=== PATIENT | male | born 1965 | race Caucasian/White ===

== ENCOUNTER 2023-09-11 20:12 | Emergency (ER) | payer OTHER, SELFPAY ==
[2023-09-11 20:15] VITALS: BP 143/91
[2023-09-11 20:33] LABS: % Basophils 0.4 % (0-2); % Eosinophils 2.5 % (0-6); % Immature Granulocytes 1.5 % (0-0.5); % Monocytes 8.2 % (1.7-9.3); % Neutrophils 79.4 % (42.2-75.2); Absolute Basophils 0.1 10^3/uL (0-0.2); Absolute Eosinophils 0.3 10^3/uL (0-0.7); Absolute Immature Granulocytes 0.2 10^3/uL (0-0.05); Absolute Lymphocytes 1.1 10^3/uL (1.2-3.4); Absolute Monocytes 1.1 10^3/uL (0.1-0.6); Absolute Neutrophils 10.8 10^3/uL (1.4-6.5); Hematocrit 37.1 % (39.0-52.0); Hemoglobin 13.2 g/dL (13.0-18.0); Mean Corp Hgb Conc. 35.6 g/dL (33.0-37.0); Mean Corpuscular Hgb 29.3 pg (27.0-31.0); Mean Corpuscular Volume 82.4 fL (80.0-94.0); Nucleated Red Blood Cells % 0 % (-); Platelet Count 260 10^3/uL (130-400); Red Cell Dist. Width 12.6 % (11.5-14.5); White Blood Cell Count 13.6 10^3/uL (4.8-10.8)
[2023-09-11 20:41] LABS: COVID-19 Antigen Negative (Negative)
[2023-09-11 20:53] LABS: ALT (SGPT) 23 U/L (0-50); AST (SGOT) 18 U/L (17-59); Albumin 3.4 g/dl (3.5-5.0); Alkaline Phosphatase 108 U/L (38-126); Blood Urea Nitrogen 15 mg/dl (9-20); Calcium 8.5 mg/dl (8.4-10.2); Carbon Dioxide 22 mmol/L (22-30); Chloride 100 mmol/L (98-107); Glucose 131 mg/dl (70-99); Potassium 3.5 mmol/L (3.5-5.1); Sodium 134 mmol/L (135-145); Total Bilirubin 0.4 mg/dl (0.2-1.3); Total Protein 6.5 g/dl (6.3-8.2); eGFR > 60.00
[2023-09-11 21:16] VITALS: BMI 25.5
[2023-09-11 21:21] VITALS: BP 128/70
[2023-09-11] MEDS: OMNICEF 300 MG PO (22:32)
[2023-09-11] MEDS: ZITHROMAX 500 MG PO (22:32)
--- NOTE | 2023-09-11 22:35 | ED.GENMED ---
History of Present Illness
General
Chief Complaint: Cold/Flu/URI Symptoms
Source: patient and spouse
Exam Limitations: none
Time Seen by Provider: 09/11/23 21:02
Nursing documentation reviewed up to this point in time: agreed with
Travel History
Have you had any contact with someone who has COVID-19?: No
Do you have any symptoms of coronavirus? Fever > 100 degrees, chills, cough, shortness of breath, sore throat, loss of taste or smell, muscle aches, or headache?: No
History of Present Illness
History of Present Illness:
57-year-old male presenting to the emergency department today with concerns of ongoing fever after being diagnosed with the flu 1 week ago after being in [place]. He claims that his main symptom is cough. Sore throat and additional upper
respiratory symptoms seem to have been improving. No abdominal pain no vomiting.
Review of Systems
Review of Systems
Allergies reviewed?: Yes
All Other Systems: ROS reviewed and negative except as documented in HPI and ROS
Phy Exam
Physical Exam
Physical Exam:
GENERAL: Alert , in no apparent distress
EYE: pupils equal and reactive
NECK: Supple, no significant adenopathy.
ENT: o/p clr, mmm.
CARDIAC: Regular rate and rhythm .
LUNGS: Rhonchi right upper lobe otherwise clear breath sounds bilaterally, no acute respiratory distress, no wheezes/rales/rhonchi
ABDOMEN: Rhonchi to right upper lobe t soft, without focal tenderness, no r/g, no cvat
NEUROLOGICAL: Alert and oriented, no focal neuro deficits
SKIN: Warm and dry, skin intact.
MUSCULOSKELETAL: No edema, well perfused.
PSYCH: Normal and appropriate interaction.
Course
Orders/Labs/Results
Orders:
Orders
09/11/23 20:22
COVID-19 Antigen Urgent
Source: Nasal Swab
Complete Blood Count/With Diff Urgent
Comprehensive Metabolic Panel Urgent
Influenza A+B Rapid Molecular Urgent
SANTIAGO Source: Nasal Swab
Specimen Description:
09/11/23 21:03
Chest [CR Chest - 2 Views ] Urgent
Comment:
Reason For Exam: fever cough
09/11/23 22:15
Azithromycin [Zithromax] 500 mg PO NOW STA
Cefdinir [Omnicef] 300 mg PO NOW STA
Abnormal Lab Results
09/11/23
20:22
WBC 13.6 H 10^3/uL
(4.8-10.8)
RBC 4.50 L 10^6/uL
(4.70-6.10)
Hct 37.1 L %
(39.0-52.0)
Abs Immat Gran (auto) 0.2 H 10^3/uL
(0-0.05)
Absolute Neuts (auto) 10.8 H 10^3/uL
(1.4-6.5)
Absolute Lymphs (auto) 1.1 L 10^3/uL
(1.2-3.4)
Absolute Monos (auto) 1.1 H 10^3/uL
(0.1-0.6)
Immature Gran % 1.5 H %
(0-0.5)
Neutrophils % 79.4 H %
(42.2-75.2)
Lymphocytes % 8.0 L %
(20.5-51.1)
Sodium 134 L mmol/L
(135-145)
Glucose 131 H mg/dl
(70-99)
Albumin 3.4 L g/dl
(3.5-5.0)
09/11/23 20:22
09/11/23 20:22
Vital Signs
Initial and Last Documented VS:
Initial Vital Signs
Temp Pulse Resp BP Pulse Ox
98.1 F 82 16 143/91 99
09/11/23 20:15 09/11/23 20:15 09/11/23 20:15 09/11/23 20:15 09/11/23 20:15
Last Documented Vital Signs
Temp Pulse Resp BP Pulse Ox
98.1 F 76 16 128/70 95
09/11/23 20:15 09/11/23 21:21 09/11/23 21:21 09/11/23 21:21 09/11/23 21:16
MDM/Problems Addressed
MDM/Problems Addressed:
57-year-old male presenting to the emergency department today with concerns of intermittent fevers 1 week after being diagnosed with the flu. Main symptom ongoing is cough denies chest pain or shortness of breath on arrival vital signs are normal
patient well-appearing no obvious distress does have adventitious sounds to the right upper lobe of the lungs chest x-ray confirming pneumonia on my independent interpretation. Plan for treatment for community-acquired pneumonia otherwise stable
for discharge return precautions given.
*Critical Care Note
Total Time (30-74mins, 75-104mins- exclusive of procedures): Not Applicable
ED Attending Note
-
Portions of this chart may have been created with voice recognition software.� Occasional wrong word or��sound alike� substitutions may have occurred due to the inherent limitations of voice recognition software.
Discharge Plan
Departure
Patient Disposition: Home (Routine Discharge)
Date of Disposition: 09/11/23
Time of Disposition: 22:37
Patient with high blood pressure during this ER visit?: No
Condition: Good
Covid-19: Not Applicable
Discharge Problem:
Pneumonia
Instructions: Pneumonia
Prescriptions:
New
cefpodoxime 100 mg tablet
200 mg PO BID 7 Days Qty: 28 0RF
azithromycin 500 mg tablet
500 mg PO DAILY 2 Days Qty: 2 0RF
Referrals:
Dedrick Silvestre MD [Family Provider] -
Activity Restrictions/Additional Instructions:
You came to the emergency department today with concerns of ongoing fever. You are found to have a pneumonia. Please take the prescribed antibiotics. Return to the emergency department for any worsening, new or concerning symptoms.
Interventions
Interventions:
*Risk Screen - Suicide Last Done: 09/11/23 20:15
*General Assessment Last Done: 09/11/23 20:15
*Neglect/Abuse Screening Last Done: 09/11/23 20:15
ED- Fall Risk Assessment Last Done: 09/11/23 21:16
*ED COVID-19 Vaccine History Last Done: 09/11/23 20:15
ED- Pulmonary Assessment Last Done: 09/11/23 21:16
== END 2023-09-11 23:30 | disposition home or self-care (01) ==
LOC: EMR 20:12
PROVIDERS: Emergency Medicine; EMERGENCY PHYSICIAN Emergency Medicine; FAMILY PHYSICIAN Family Medicine
DX: J18.9 Pneumonia, unspecified organism (principal); Z11.52 Encounter for screening for COVID-19
CPT/HCPCS: 99284; 71046; 80053; 85025; 87502; 87811

== ENCOUNTER 2023-09-14 05:34 | Inpatient (IN) | payer OTHER, SELFPAY ==
[2023-09-13 21:50] VITALS: BP 147/103
[2023-09-13 22:21] LABS: % Basophils 0.6 % (0-2); % Eosinophils 1.8 % (0-6); % Immature Granulocytes 6.1 % (0-0.5); % Lymphocytes 11.6 % (20.5-51.1); % Monocytes 8.8 % (1.7-9.3); % Neutrophils 71.1 % (42.2-75.2); Absolute Basophils 0.1 10^3/uL (0-0.2); Absolute Eosinophils 0.3 10^3/uL (0-0.7); Absolute Lymphocytes 1.9 10^3/uL (1.2-3.4); Absolute Monocytes 1.4 10^3/uL (0.1-0.6); Absolute Neutrophils 11.4 10^3/uL (1.4-6.5); Hematocrit 37.9 % (39.0-52.0); Hemoglobin 13.1 g/dL (13.0-18.0); Mean Corp Hgb Conc. 34.6 g/dL (33.0-37.0); Mean Platelet Volume 8.7 fL (7.4-10.4); Nucleated Red Blood Cells % 0 % (-); Platelet Count 305 10^3/uL (130-400); Red Blood Cell Count 4.51 10^6/uL (4.70-6.10); Red Cell Dist. Width 12.8 % (11.5-14.5)
[2023-09-13 22:29] LABS: ALT (SGPT) 36 U/L (0-50); AST (SGOT) 26 U/L (17-59); Albumin 3.5 g/dl (3.5-5.0); Alkaline Phosphatase 121 U/L (38-126); Blood Urea Nitrogen 14 mg/dl (9-20); Calcium 8.3 mg/dl (8.4-10.2); Carbon Dioxide 26 mmol/L (22-30); Chloride 100 mmol/L (98-107); Glucose 125 mg/dl (70-99); Potassium 3.6 mmol/L (3.5-5.1); Sodium 133 mmol/L (135-145); Total Bilirubin 0.5 mg/dl (0.2-1.3); Total Protein 6.5 g/dl (6.3-8.2); eGFR > 60.00
[2023-09-13 22:41] LABS: Urine Albumin 1+ (Neg - Trace); Urine Bilirubin 1+ (Negative); Urine Character Clear (Clear); Urine Color Yellow; Urine Glucose Negative (Negative); Urine Ketone Negative (Negative); Urine Leukocyte Negative (Negative); Urine Nitrite Negative (Negative); Urine Occult Blood 4+ (Negative); Urine Specific Gravity 1.015 (<1.030); Urine Urobilinogen Negative (Neg - 1+)
[2023-09-13 22:54] LABS: Urine Mucus Few
[2023-09-13 22:55] LABS: Urine Bacteria Few (Negative); Urine Red Blood Cell 26-30 /HPF (0-2); Urine Squamous Cell 0-2 /LPF (Few); Urine White Cell 0-2 /HPF (0-5)
[2023-09-14] VITALS (9 sets, daily range): BP systolic 118–155; BP diastolic 63–85; BMI 25.6; BMI 26.5
--- NOTE | 2023-09-14 00:30 | ED.GENMED ---
History of Present Illness
<Chase Phillips PA-C - Last Filed: 09/16/23 07:14>
General
Chief Complaint: Male Genito-Urinary Symptoms
Source: patient
Exam Limitations: none
Time Seen by Provider: 09/14/23 00:14
Travel History
Have you had any contact with someone who has COVID-19?: No
Do you have any symptoms of coronavirus? Fever > 100 degrees, chills, cough, shortness of breath, sore throat, loss of taste or smell, muscle aches, or headache?: No
History of Present Illness
History of Present Illness:
57-year-old male presents with onset of right flank pain that radiates to the right testicle. He was seen here 3 days ago and diagnosed with right upper lobe pneumonia. He has been on cefpodoxime as well as Zithromax. He denies any urinary
symptoms. He has a remote history of a kidney stone. Prior to getting pneumonia he had the flu from visiting [facility]. No bowel change. No other complaints at this time
Phy Exam
<Chase Phillips PA-C - Last Filed: 09/16/23 07:14>
Physical Exam
Physical Exam:
General: Well-appearing male no acute respiratory distress
HEENT: Normocephalic atraumatic
Heart: Regular rate rhythms
Lungs: CTA bilaterally
Abd: soft, mildly tender to right flank, nontender to RLQ. Negative enciso's sign
Ext: No cyanosis or edema
Skin; warm, no rashes or lesions.
Course
<Chase Phillips PA-C - Last Filed: 09/16/23 07:14>
Orders/Labs/Results
Orders:
Orders
09/13/23 21:59
Complete Blood Count/With Diff Urgent
Comprehensive Metabolic Panel Urgent
09/13/23 22:23
Urinalysis Reflex To Culture Urgent
Date Specimen was Collected: 09/13/23
Time Specimen was Collected: 21:54
Urine Microscopic Reflex Cult Urgent
Urine Culture Urgent
SANTIAGO Source: U
Specimen Description:
Date Specimen was Collected: 09/13/23
Time Specimen was Collected: 21:54
Comment: ADD ON
09/14/23 00:24
Ketorolac [Toradol] 15 mg IV NOW STA
09/14/23 00:25
CT Abd/pel Without Iv Or Oral Urgent
Comment:
Reason For Exam: right flank pain
09/14/23 01:58
HYDROmorphone [Dilaudid] 0.5 mg IV NOW STA
09/14/23 04:03
Aztreonam [Azactam] 2,000 mg IV NOW STA
09/14/23 04:09
Sterile Water [Sterile Water For Injection] 10 ml .ROUTE .STK-MED ONE
09/14/23 04:30
Vancomycin [Vancocin] 2,000 mg 0.9% Sodium Chloride 500 ml [Nss] 500 ml IV ONCE
09/14/23 04:40
Admit/Transfer Patient As Directed
Co-Sign Provider:
Level of Care: Inpatient admission
Assign to:: Medical/Surgical
Physician / Group: htay
Diagnosis: Mild Rt HN, 3 mm kidney stone notch of distal Rt Ureter
Reason for Hospitalization: Obstructive uropathy mild Rt HN 2/2 3 mm kidney stone notch of distal Rt Ureter
Possibel infected stone : Acute Rt flank painLow grade fever with leucoytosis
Expected length of stay greater than two midnights?: Yes
ELOS- Estimated Length of Stay in days: 2
I certify the patient meets the requirements for IP care: Yes
09/14/23 04:42
Code Status As Directed
Resuscitation Status: Full Code
09/14/23 Breakfast
NPO
Allow oral meds: Yes
Allow clear liquids: No
NPO with Ice Chips: Yes
09/14/23 06:15
0.9% Sodium Chloride 1000 ml [Nss] 1,000 ml IV 100 mls/hr
Acetaminophen [Tylenol] 650 mg PO Q4HPRN PRN
Ketorolac [Toradol] 10 mg IV Q6HPRN PRN
09/14/23 06:15
UROLOGY CONSULT Routine
Consulting Provider: Harsh Rinaldi
Was physician already notified: Yes
Comment: Obstructive uropathy mild Rt HN 2/2 3 mm kidney stone notch of distal Rt Ur
Activity As Directed
Activity Level: With Assistance
Intake/ Output As Directed
Frequency: Per unit guidelines
Pneumatic Compression Sleeves As Directed
Type: Knee high
Vital Signs As Directed
Frequency: Per unit guidelines
DX Deep Vein Thrombosis Video Routine
09/14/23 10:00
LevoFLOXacin 500 MG/100 ML [Levaquin] 500 mg in 100 ml IV Q24H
09/15/23 08:38
Basic Metabolic Panel IN AM
Complete Blood Count/No Diff IN AM
Abnormal Lab Results
09/13/23 09/13/23
21:59 22:23
WBC 16.0 H 10^3/uL
(4.8-10.8)
RBC 4.51 L 10^6/uL
(4.70-6.10)
Hct 37.9 L %
(39.0-52.0)
Abs Immat Gran (auto) 1.0 H 10^3/uL
(0-0.05)
Absolute Neuts (auto) 11.4 H 10^3/uL
(1.4-6.5)
Absolute Monos (auto) 1.4 H 10^3/uL
(0.1-0.6)
Immature Gran % 6.1 H %
(0-0.5)
Lymphocytes % 11.6 L %
(20.5-51.1)
Sodium 133 L mmol/L
(135-145)
Glucose 125 H mg/dl
(70-99)
Calcium 8.3 L mg/dl
(8.4-10.2)
Ur Occult Blood Reflex 4+ A
(Negative)
Urine Bilirubin 1+ A
(Negative)
Urine RBC 26-30 A /HPF
(0-2)
Urine Bacteria (Reflex) Few A
(Negative)
Urine Albumin (Reflex) 1+ A
(Neg - Trace)
09/13/23 21:59
09/13/23 21:59
Vital Signs
Initial and Last Documented VS:
Initial Vital Signs
Temp Pulse Resp BP Pulse Ox
100 F 96 18 147/103 95
09/13/23 21:50 09/13/23 21:50 09/13/23 21:50 09/13/23 21:50 09/13/23 21:50
Last Documented Vital Signs
Temp Pulse Resp BP Pulse Ox
99.4 F 83 16 149/84 96
09/15/23 23:30 09/15/23 23:30 09/15/23 23:30 09/15/23 23:30 09/15/23 23:30
<Cam Beltran, DO - Last Filed: 09/14/23 04:06>
Orders/Labs/Results
Orders:
Orders
09/13/23 21:59
Complete Blood Count/With Diff Urgent
Comprehensive Metabolic Panel Urgent
09/13/23 22:23
Urinalysis Reflex To Culture Urgent
Date Specimen was Collected: 09/13/23
Time Specimen was Collected: 21:54
Urine Microscopic Reflex Cult Urgent
Urine Culture Urgent
SANTIAGO Source: U
Specimen Description:
Date Specimen was Collected: 09/13/23
Time Specimen was Collected: 21:54
Comment: ADD ON
09/14/23 00:24
Ketorolac [Toradol] 15 mg IV NOW STA
09/14/23 00:25
CT Abd/pel Without Iv Or Oral Urgent
Comment:
Reason For Exam: right flank pain
09/14/23 01:58
HYDROmorphone [Dilaudid] 0.5 mg IV NOW STA
09/14/23 04:03
Aztreonam [Azactam] 2,000 mg IV NOW STA
09/14/23 04:09
Sterile Water [Sterile Water For Injection] 10 ml .ROUTE .STK-MED ONE
09/14/23 04:30
Vancomycin [Vancocin] 2,000 mg 0.9% Sodium Chloride 500 ml [Nss] 500 ml IV ONCE
09/14/23 04:40
Admit/Transfer Patient As Directed
Co-Sign Provider:
Level of Care: Inpatient admission
Assign to:: Medical/Surgical
Physician / Group: htay
Diagnosis: Mild Rt HN, 3 mm kidney stone notch of distal Rt Ureter
Reason for Hospitalization: Obstructive uropathy mild Rt HN 2/2 3 mm kidney stone notch of distal Rt Ureter
Possibel infected stone : Acute Rt flank painLow grade fever with leucoytosis
Expected length of stay greater than two midnights?: Yes
ELOS- Estimated Length of Stay in days: 2
I certify the patient meets the requirements for IP care: Yes
09/14/23 04:42
Code Status As Directed
Resuscitation Status: Full Code
09/14/23 Breakfast
NPO
Allow oral meds: Yes
Allow clear liquids: No
NPO with Ice Chips: Yes
09/14/23 06:15
0.9% Sodium Chloride 1000 ml [Nss] 1,000 ml IV 100 mls/hr
Acetaminophen [Tylenol] 650 mg PO Q4HPRN PRN
Ketorolac [Toradol] 10 mg IV Q6HPRN PRN
09/14/23 06:15
UROLOGY CONSULT Routine
Consulting Provider: Harsh Rinaldi
Was physician already notified: Yes
Comment: Obstructive uropathy mild Rt HN 2/2 3 mm kidney stone notch of distal Rt Ur
Activity As Directed
Activity Level: With Assistance
Intake/ Output As Directed
Frequency: Per unit guidelines
Pneumatic Compression Sleeves As Directed
Type: Knee high
Vital Signs As Directed
Frequency: Per unit guidelines
DX Deep Vein Thrombosis Video Routine
09/14/23 10:00
LevoFLOXacin 500 MG/100 ML [Levaquin] 500 mg in 100 ml IV Q24H
09/15/23 08:38
Basic Metabolic Panel IN AM
Complete Blood Count/No Diff IN AM
Abnormal Lab Results
09/13/23 09/13/23
21:59 22:23
WBC 16.0 H 10^3/uL
(4.8-10.8)
RBC 4.51 L 10^6/uL
(4.70-6.10)
Hct 37.9 L %
(39.0-52.0)
Abs Immat Gran (auto) 1.0 H 10^3/uL
(0-0.05)
Absolute Neuts (auto) 11.4 H 10^3/uL
(1.4-6.5)
Absolute Monos (auto) 1.4 H 10^3/uL
(0.1-0.6)
Immature Gran % 6.1 H %
(0-0.5)
Lymphocytes % 11.6 L %
(20.5-51.1)
Sodium 133 L mmol/L
(135-145)
Glucose 125 H mg/dl
(70-99)
Calcium 8.3 L mg/dl
(8.4-10.2)
Ur Occult Blood Reflex 4+ A
(Negative)
Urine Bilirubin 1+ A
(Negative)
Urine RBC 26-30 A /HPF
(0-2)
Urine Bacteria (Reflex) Few A
(Negative)
Urine Albumin (Reflex) 1+ A
(Neg - Trace)
09/13/23 21:59
09/13/23 21:59
Vital Signs
Initial and Last Documented VS:
Initial Vital Signs
Temp Pulse Resp BP Pulse Ox
100 F 96 18 147/103 95
09/13/23 21:50 09/13/23 21:50 09/13/23 21:50 09/13/23 21:50 09/13/23 21:50
Last Documented Vital Signs
Temp Pulse Resp BP Pulse Ox
99.4 F 83 16 149/84 96
09/15/23 23:30 09/15/23 23:30 09/15/23 23:30 09/15/23 23:30 09/15/23 23:30
<Chase Phillips PA-C - Last Filed: 09/16/23 07:14>
MDM/Problems Addressed
Differential Diagnosis Includes:
Right flank pain. Question possible renal colic versus kidney stone versus pyelonephritis. He was started on an antibiotic recently for pneumonia. White blood cell count 16,000. Urinalysis with hematuria but no infection. CT pending
<Chase Phillips PA-C - Last Filed: 09/16/23 07:14>
*Critical Care Note
Total Time (30-74mins, 75-104mins- exclusive of procedures): Not Applicable
<Cam Beltran DO - Last Filed: 09/14/23 04:06>
Update Note
Update Note:
CT abdomen and pelvis without intravenous contrast
IMPRESSION:
Mild right hydroureteronephrosis secondary to a 3 mm stone notch of the distal right ureter, compatible with obstructive uropathy. Correlate with urinalysis to assess for superimposed infection.
Small right pleural effusion. No bowel obstruction. No inguinal hernia. No cholecystitis or pancreatitis.
ED Attending Note
<Chase Phillips PA-C - Last Filed: 09/16/23 07:14>
-
Portions of this chart may have been created with voice recognition software.� Occasional wrong word or��sound alike� substitutions may have occurred due to the inherent limitations of voice recognition software.
<Cam Beltran DO - Last Filed: 09/14/23 04:06>
ED Attending Note
Patient seen and examined by attending physician: Yes
I performed the substantive portion of visit, reviewed & personally made and approve the management plan that is documented in note by myself or SOFÍA.: Yes
ED Attending Note:
57-year-old male with fevers for a week. In addition he was diagnosed with influenza and pneumonia. He was started on 2 antibiotics. Patient still having fevers as of today. He has been having right-sided testicular and flank pain for the last
week. He states that the flank pain began with the beginning of the fevers. Patient is still not feeling much better. At this time patient will be brought into the hospital for IV antibiotics.
Discharge Plan
Departure
Patient Disposition: Admit
Date of Disposition: 09/14/23
Time of Disposition: 04:04
Admit to: Telemetry
Presentation/result/management discussed w/ accepting MD/DO: Hospitalist
Condition: Good
Discharge Problem:
Kidney stone on right side, Fever
Interventions
Interventions:
*Risk Screen - Suicide Last Done: 09/13/23 21:50
*General Assessment Last Done: 09/13/23 21:50
*Neglect/Abuse Screening Last Done: 09/13/23 21:50
ED- Fall Risk Assessment Last Done: 09/14/23 06:23
*ED COVID-19 Vaccine History Last Done: 09/14/23 00:13
*Nursing Disposition Last Done: 09/14/23 13:51
ED-Male Genitourinary Assessment Last Done: 09/14/23 00:43
Discharge Date and Time
Discharge Date/Time: 09/14/23 13:52
[2023-09-14] MEDS: TORADOL 15 MG IV (00:39)
--- NOTE | 2023-09-14 00:46 | EDRN ---
Pt has had R groin pain x 8 days that worsened today and is going into R flank. Pt denies urinary symptoms, n/v, fever/chills, cp, sob. Pt being treated for pneumonia after having the flu.
[2023-09-14] MEDS: DILAUDID 0.5 MG IV (02:00)
[2023-09-14] MEDS: AZACTAM 2000 MG IV (04:14)
--- NOTE | 2023-09-14 04:14 | EDRN ---
Called pharmacy for vancomycin
[2023-09-14] MEDS: VANCOCIN 540 MG IV (04:33)
--- NOTE | 2023-09-14 04:36 | HPS.HSE ---
Family Physician
-
Family Physician: Dedrick Silvestre
Chief Complaint
-
acute Rt flank pain
History of Present Illness
57M remote HX kidney stone, currently on Cefpodoxime and Z max for recently Dxed Rt UL PNA 3 days ago pw worsening intermittent acute Rt flank pain with intermittent radiation to R testis since 1st week of August while he was in [place] for
business trip. Since then, reportedly intermittent fever for last 2.5 weeks. Yesterday T was as high as 102.
Acute severe flank pain prompted to visit ER this AM
Denied N/V/D
Denied Gross hematuria, dysuria, frequency.
Medical History
Past Medical History
Past Medical History: Reports Other (HX kidney stone )
Past Surgical History: Reports None
Social History
Tobacco: Non-smoker
Alcohol: None
Family History
Family History: Not pertinent
Allergies / Home Medications
Allergies reflects when Allergies were last updated in [facility].
Home Medications with original date entered in [facility]
Allergy/Medication List:
Allergies
Allergy/AdvReac Type Severity Reaction Status Date / Time
Penicillins Allergy Unknown Unknown Verified 09/14/23 00:35
Home Medications
cefpodoxime 100 mg tablet 200 mg PO BID 7 days #28 tabs 09/11/23
Review of Systems
-
Constitutional: Reports Fever
EENT: Reports No Symptoms
Respiratory: Reports No Symptoms
Cardiac: Reports No Symptoms
Abdomen/GI: Reports No Symptoms
: Reports See HPI and Flank Pain (Rt sided ); Denies Dysuria or Frequency
Musculoskeletal: Reports No Symptoms
Skin: Reports No Symptoms
Neurological: Reports No Symptoms
Endocrine: Reports No Symptoms
Hematologic/Lymphatic: Reports No Symptoms
Psych: Reports No Symptoms
Physical Exam
Vital Signs
Vital Signs
Temp Pulse Resp BP Pulse Ox
99.3 F 78 14 118/70 98
09/14/23 04:23 09/14/23 04:23 09/14/23 04:23 09/14/23 04:23 09/14/23 00:34
Physical Exam
General: Well Nourished and Comfortable
HEENT: NormoCephalic, Anicteric and Moist mucous membranes
Respiratory: Clear; No Wheezes, Rales or Rhonchi
Cardiac: S1/S2 and Regular Rhythm; No Tachycardia
GI: Soft, Non Tender, Non Distended and Normal Bowel Sounds
Rectal: Deferred by Provider
Genito-urinary: Other (Rt flank pain ); No No costovertebral tender
Skin: Warm
Neuro: AO x 3
Psych: Calm
Laboratory Results
-
09/13/23 21:59
09/13/23 21:59
Laboratory Results
Total Bilirubin 0.5 mg/dl (0.2-1.3) 09/13/23 21:59
AST 26 U/L (17-59) 09/13/23 21:59
ALT 36 U/L (0-50) 09/13/23 21:59
Alkaline Phosphatase 121 U/L (38-126) 09/13/23 21:59
Data Reviewed
-
CT Scan: Report Reviewed by me
Lab Data: Labs Reviewed by me
Impression/Plan
-
Reviewed VS: T 100 HR 80s BP 127/73
Data
WCC 16
Na 133
nl Cr nl GFR
BG 125
UA - RBCs 26-30
CT AP wo IV contrast
- mild Rt HN 2/2 3 mm kidney stone notch of distal Rt Ureter
- small Rt pleural effusion
ASSESSMENT & PLAN
Possible infected distal Rt Ureter stone : Acute Rt flank pain Low grade fever with leucocytosis
Associated with obstructive uropathy mild Rt HN due to 3 mm kidney stone notch of distal Rt Ureter
HX PCN allergy
- switch to IV LVQ
- IVF
- IV Toradol PRN
- NPO
- Uro consulted
Recent OP Dx of RUL PNA
- IV LVQ in place of PO Cefpodoxime and Z max
DVT Px: SCD
Code: Full
IP MS
[2023-09-14] MEDS: NSS 1000 IV ×2 (06:37→14:30)
--- NOTE | 2023-09-14 09:02 | W.PN.URO.CBU ---
Today's Communication / Plan
-
Admit to Hospitalist service for observation
Will allow a trial of stone passage under close watch
Unfortunately, a urine culture does not appear to have been sent before beginning IV levofloxacin
Will proceed to OR for stone manipulation 09/16/23 if stone does not pass
Assessment / Plan
-
Partially obstructing 3 mm right UVJ stone
Minimal discomfort
Urinalysis not c/w UTI
---
Patient has been on antibiotic 48 hours for RUL PNA
He has had respiratory symptoms for 2 weeks: fever, cough, SOB
Fevers and leukocytosis most likely due to PNA
Diagnosis
-
Date of Service: September 14, 2023
-
Patient Diagnosis:
Partially obstructing 3 mm right UVJ stone: CT scan images personally reviewed
Urinalysis w/o evidence of acute infection
Currently comfortable; has had vague RLQ discomfort
---
Past urologic history notable for nephrolithiasis
Patient has never required stone surgery
Has passed stones spontaneously: has had no issues in many years
---
He has right upper lobe PNA: 09/11/23 CXR reviewed
He has had intermittent fever > 100 x 2 weeks
He currently has a non-productive cough
Subjective
-
No renal colic
No voiding dysfunction
No gross hematuria
No nausea
Objective
-
Vital Signs
Temp Pulse Resp BP Pulse Ox
99.3 F 78 14 118/70 98
09/14/23 04:23 09/14/23 04:23 09/14/23 04:23 09/14/23 04:23 09/14/23 00:34
Laboratory Results
09/13/23 21:59
09/13/23 21:59
Review of Systems
-
Constitutional: Fever and Fatigue
Respiratory: Cough
Cardiac: No Symptoms
Abdomen/GI: No Symptoms
: No Symptoms
Neurological: No Symptoms
Physical Exam
-
General - well developed, well nourished, no acute distress
Abdomen - soft, non-tender, no CVAT
Genitalia - normal
Skin - warm & dry with no rash
Neuro - AOx3, no motor deficits
[2023-09-14] MEDS: TYLENOL 650 MG PO ×3 (09:24→22:30)
[2023-09-14] MEDS: FLOMAX 0.400000000000000022 MG PO (10:45)
[2023-09-14] MEDS: ROCEPHIN 1000 MG IV (10:46)
[2023-09-14] MEDS: STERILE WATER FOR INJECTION 10 ML IV (10:47)
--- NOTE | 2023-09-14 14:30 | PTCARENOTE ---
09/13- Patient transferred and oriented to unit without issue. AAOX3; Skin CDI/Warm/[place]/Dry; Denies any pain at this time. Denies any other needs. Fully independent in room.
--- NOTE | 2023-09-14 15:00 | W.PN.UPDATE ---
Update Note
Progress Note Update
This note serves as supplemental to history and physical already documented today
� Switch Levaquin to ceftriaxone
� Continue IV fluids, monitor sodium levels
� Urology on board, will allow trial of stone passage
� Add on urine cultures if possible, will start antibiotics prior to ensuring that urine culture was sent
� Proceed to the OR for stone manipulation on 09/15 if stone does not pass
� Pain control
� Added HSQ for DVT prophylaxis
�Was started on antibiotics for pneumonia, cefpodoxime�now�switch to ceftriaxone, can hold
[2023-09-14] MEDS: HEPARIN 5000 UNITS SC (19:47)
[2023-09-15] MEDS: NSS 1000 IV (00:25)
[2023-09-15 07:30] VITALS: BP 127/74
[2023-09-15] MEDS: HEPARIN 5000 UNITS SC (08:00)
[2023-09-15] MEDS: FLOMAX 0.400000000000000022 MG PO (08:00)
--- NOTE | 2023-09-15 08:29 | W.PN.URO.CBU ---
Today's Communication / Plan
-
Has possibly passed stone into urinary bladder
Cleared for discharge for outpatient trial of stone passage if remains pain-free today
Assessment / Plan
-
Partially obstructing 3 mm right UVJ stone
No discomfort
Urinalysis not c/w UTI
---
Patient has been on antibiotic 48 hours for RUL PNA
He has had respiratory symptoms for 2 weeks: fever, cough, SOB
Fevers and leukocytosis most likely due to PNA
Diagnosis
-
Date of Service: September 15, 2023
-
Patient Diagnosis:
Partially obstructing 3 mm right UVJ stone: CT scan images personally reviewed
Urinalysis w/o evidence of acute infection
Currently comfortable: has had no recurrent renal colic
---
Past urologic history notable for nephrolithiasis
Patient has never required stone surgery
Has passed stones spontaneously: has had no issues in many years
---
He has right upper lobe PNA: 09/11/23 CXR reviewed
He has had intermittent fever > 100 x 2 weeks
He currently has a non-productive cough
Subjective
-
No flank or abdominal pain
Objective
-
Vital Signs
Temp Pulse Resp BP Pulse Ox
98.2 F 77 18 127/74 94
09/15/23 07:30 09/15/23 07:30 09/15/23 07:30 09/15/23 07:30 09/15/23 07:30
Intake and Output
09/14/23 09/15/23 09/16/23
06:59 06:59 06:59
Intake Total 2880 / 2880
Output Total 1750 / 1750
Balance 1130 / 1130
Intake:
Oral fluids 1680 / 1680
IV fluids (Total) 1200 / 1200
Output:
Urine, Voided 1750 / 1750
Review of Systems
-
Constitutional: No Symptoms
Respiratory: Cough
Cardiac: No Symptoms
Abdomen/GI: No Symptoms
: No Symptoms
Neurological: No Symptoms
Physical Exam
-
General - well developed, well nourished, no acute distress
Abdomen - soft, non-tender
Genitalia - normal
Skin - warm & dry with no rash
Neuro - AOx3, no motor deficits
[2023-09-15 09:01] LABS: Hematocrit 34.5 % (39.0-52.0); Hemoglobin 11.7 g/dL (13.0-18.0); Mean Corp Hgb Conc. 33.9 g/dL (33.0-37.0); Mean Corpuscular Hgb 28.8 pg (27.0-31.0); Mean Platelet Volume 8.6 fL (7.4-10.4); Platelet Count 297 10^3/uL (130-400); Red Blood Cell Count 4.06 10^6/uL (4.70-6.10); Red Cell Dist. Width 12.4 % (11.5-14.5); White Blood Cell Count 11.9 10^3/uL (4.8-10.8)
[2023-09-15] MEDS: STERILE WATER FOR INJECTION 10 ML IV (09:28)
[2023-09-15] MEDS: ROCEPHIN 1000 MG IV (09:28)
--- NOTE | 2023-09-15 10:52 | CM ---
admitting manager reviewed patient's chart and met with patient and patient lives with significant other in a multilevel home, patient is independent with adl's and ambulation, no dme, patient drives, patient has a prescription plan and uses [facility] pharmacy.
PCP: Dr. Silvestre
Plan; Home when stable, no needs.
[2023-09-15 10:53] LABS: Blood Urea Nitrogen 11 mg/dl (9-20); Calcium 7.9 mg/dl (8.4-10.2); Carbon Dioxide 27 mmol/L (22-30); Chloride 100 mmol/L (98-107); Estimated Creatinine Clearance 91 ml/min; Glucose 103 mg/dl (70-99); Magnesium 1.8 mg/dl (1.6-2.3); Potassium 3.7 mmol/L (3.5-5.1); Sodium 135 mmol/L (135-145); eGFR > 60.00
[2023-09-15] MEDS: VIBRAMYCIN 100 MG PO ×2 (11:02→19:42)
[2023-09-15] MEDS: DUONEB 3 ML INH (12:46)
--- NOTE | 2023-09-15 14:47 | W.PN.HOSP.TC ---
Today's Communication/Plan
-
add doxycycline
start prn DuoNeb therapy
Assessment / Plan
Assessment / Plan
1. Right distal ureteral stone
-CT abd/pelv showing small 3mm distal urerteal stone
-Passed with conservative mangment/IVF
-Urology cleared for discahrge
2. RUL Pna
- diagnosed last week
- continue to have shortness breath/wheezing
- wheezing on exam, non smoker. duoneb prn ordered
- COVID/flu neg. check legionella/strep pneumonia
- added doxycycline to regimen. already on rocephin
DVT Px: SCD
Code: Full
Anticipated Discharge: Within 24 hours
Subjective/Interval History
-
Date of Service: September 15, 2023
Continues to have cough and shortness of breath
febrile last evening
Objective Data
-
Labs:
Laboratory Results
09/15/23
08:38
WBC 11.9 H
Hgb 11.7 L
Hct 34.5 L
Plt Count 297
Sodium 135
Potassium 3.7
Chloride 100
Carbon Dioxide 27
BUN 11
Creatinine 0.9
Glucose 103 H
Calcium 7.9 L
Vital Signs:
Vital Signs
Temp Pulse Resp BP Pulse Ox
98.2 F 75 14 127/74 96
09/15/23 07:30 09/15/23 12:50 09/15/23 12:50 09/15/23 07:30 09/15/23 12:50
I&O
09/14/23 09/15/23 09/16/23
06:59 06:59 06:59
Intake Total 2880 / 2880
Output Total 1750 / 1750
Balance 1130 / 1130
Review of Systems
-
Respiratory: Reports Cough and Trouble Breathing
Cardiac: Reports No Symptoms
Abdomen/GI: Reports No Symptoms
Physical Exam
-
General: Comfortable
HEENT: Negative Oxygen
Respiratory: Clear to Auscultation
Cardiac: Regular Rhythm and S1/S2; Negative Murmur or Rub
GI: Soft, Nontender and Nondistended
Musculoskeletal: No Edema
Neuro: Awake, Alert, Oriented, No Motor Deficits and Nonfocal/Grossly Intact
Psych: Calm
[2023-09-15 15:00] VITALS: BP 122/65
[2023-09-15] MEDS: TYLENOL 650 MG PO ×2 (15:28→22:51)
[2023-09-15] MEDS: ROBITUSSIN DM 10 ML PO ×2 (15:29→22:51)
[2023-09-15] MEDS: HEPARIN SC (19:49)
[2023-09-15 23:30] VITALS: BP 149/84
[2023-09-16 07:39] VITALS: BP 127/74
[2023-09-16] MEDS: HEPARIN SC ×2 (08:39→19:50)
[2023-09-16] MEDS: FLOMAX PO (08:39)
[2023-09-16] MEDS: VIBRAMYCIN 100 MG PO ×2 (08:40→19:48)
[2023-09-16] MEDS: FLOMAX 0.400000000000000022 MG PO (08:45)
--- NOTE | 2023-09-16 09:10 | W.PN.URO.CBU ---
Today's Communication / Plan
-
Continue trial of stone passage
Assessment / Plan
-
Partially obstructing 3 mm right UVJ stone
No discomfort
Urinalysis not c/w UTI
---
Patient has been on antibiotic 48 hours for RUL PNA
He has had respiratory symptoms for 2 weeks: fever, cough, SOB
Fevers and leukocytosis most likely due to PNA
Diagnosis
-
Date of Service: September 16, 2023
-
Patient Diagnosis:
Post Op Day:
Patient Diagnosis:
Partially obstructing 3 mm right UVJ stone: CT scan images personally reviewed
Urinalysis w/o evidence of acute infection
Currently comfortable: has had no recurrent renal colic
---
Past urologic history notable for nephrolithiasis
Patient has never required stone surgery
Has passed stones spontaneously: has had no issues in many years
---
He has right upper lobe PNA: 09/11/23 CXR reviewed
He has had intermittent fever > 100 x 2 weeks
He currently has a non-productive cough
Objective
-
Vital Signs
Temp Pulse Resp BP Pulse Ox
98.3 F 80 20 127/74 94
09/16/23 07:39 09/16/23 07:39 09/16/23 07:39 09/16/23 07:39 09/16/23 07:39
Intake and Output
09/15/23 09/16/23 09/17/23
06:59 06:59 06:59
Intake Total 2880 / 2880 960 / 960
Output Total 1750 / 1750 1300 / 1300
Balance 1130 / 1130 -340 / -340
Intake:
Oral fluids 1680 / 1680 960 / 960
IV fluids (Total) 1200 / 1200
Output:
Urine, Voided 1750 / 1750 1300 / 1300
Laboratory Results
09/15/23 08:38
09/15/23 08:38
Physical Exam
-
General - well developed, well nourished, no acute distress
Chest - clear bilaterally
Abdomen - soft, non-tender, positive bowel sounds, no CVAT, no incisional pain or distention
Genitalia - normal
Rectal - normal
Skin - warm & dry with no rash
Neuro - AOx3, no motor deficits
Extremities - no clubbing, no cyanosis, no edema
Incision - clean, dry
Dressing - clean, dry, intact
[2023-09-16] MEDS: STERILE WATER FOR INJECTION 10 ML IV (10:09)
[2023-09-16] MEDS: ROCEPHIN 1000 MG IV (10:09)
[2023-09-16 10:35] LABS: Hematocrit 34.1 % (39.0-52.0); Hemoglobin 11.9 g/dL (13.0-18.0); Mean Corp Hgb Conc. 34.9 g/dL (33.0-37.0); Mean Corpuscular Hgb 29.1 pg (27.0-31.0); Mean Corpuscular Volume 83.4 fL (80.0-94.0); Mean Platelet Volume 8.4 fL (7.4-10.4); Platelet Count 332 10^3/uL (130-400); Red Blood Cell Count 4.09 10^6/uL (4.70-6.10); Red Cell Dist. Width 12.5 % (11.5-14.5); White Blood Cell Count 11.7 10^3/uL (4.8-10.8)
[2023-09-16 10:54] LABS: Blood Urea Nitrogen 12 mg/dl (9-20); Calcium 8.3 mg/dl (8.4-10.2); Carbon Dioxide 27 mmol/L (22-30); Chloride 99 mmol/L (98-107); Estimated Creatinine Clearance 91 ml/min; Glucose 125 mg/dl (70-99); Potassium 3.4 mmol/L (3.5-5.1); Sodium 134 mmol/L (135-145); eGFR > 60.00
[2023-09-16] MEDS: NEO-SYNEPHRINE 0.5% NASAL SPRAY 1 SPRAY NASAL ×2 (12:57→19:51)
[2023-09-16] MEDS: ROBITUSSIN DM 10 ML PO (12:57)
[2023-09-16 15:19] VITALS: BP 135/76
--- NOTE | 2023-09-16 15:24 | W.PN.HOSP.TC ---
Today's Communication/Plan
-
monitor one more night
continue iv abx
discharge tomorrow
Assessment / Plan
Assessment / Plan
1. Right distal ureteral stone
-CT abd/pelv showing small 3mm distal urerteal stone
-Passed with conservative mangment/IVF
-Urology cleared for discahrge
2. RUL Pneumonia
- diagnosed last week
- dyspnea is better. wheezing resolved
- non smoker. duoneb prn ordered
- COVID/flu neg. legionella/strep pneumonia neg.
- Sputum cx poor sample, no pathologic organism
- added doxycycline to regimen. already on rocephin
- Repeat Cxr showing more prominent infiltrate - natural progression of pneumonia and not failure of abx therapy
DVT Px: SCD
Code: Full
Anticipated Discharge: Within 24 hours
Subjective/Interval History
-
Date of Service: September 16, 2023
feeling subjective better
cough present
no fever episode in night
Objective Data
-
Labs:
Laboratory Results
09/16/23
10:05
WBC 11.7 H
Hgb 11.9 L
Hct 34.1 L
Plt Count 332
Sodium 134 L
Potassium 3.4 L
Chloride 99
Carbon Dioxide 27
BUN 12
Creatinine 0.9
Glucose 125 H
Calcium 8.3 L
Vital Signs:
Vital Signs
Temp Pulse Resp BP Pulse Ox
98.3 F 80 20 127/74 94
09/16/23 07:39 09/16/23 07:39 09/16/23 07:39 09/16/23 07:39 09/16/23 08:00
I&O
09/15/23 09/16/23 09/17/23
06:59 06:59 06:59
Intake Total 2880 / 2880 960 / 960
Output Total 1750 / 1750 1300 / 1300
Balance 1130 / 1130 -340 / -340
Review of Systems
-
Respiratory: Reports Cough; Denies Trouble Breathing
Cardiac: Reports No Symptoms
Abdomen/GI: Reports No Symptoms
Physical Exam
-
General: Comfortable
HEENT: Negative Oxygen
Respiratory: Clear to Auscultation
Cardiac: Regular Rhythm and S1/S2; Negative Murmur or Rub
GI: Soft, Nontender and Nondistended
Musculoskeletal: No Edema
Neuro: Awake, Alert, Oriented, No Motor Deficits and Nonfocal/Grossly Intact
Psych: Calm
[2023-09-16] MEDS: TYLENOL 650 MG PO (17:24)
[2023-09-16 23:21] VITALS: BP 134/74
[2023-09-17 07:30] VITALS: BP 139/86
[2023-09-17] MEDS: ROBITUSSIN DM 10 ML PO (09:00)
[2023-09-17] MEDS: NEO-SYNEPHRINE 0.5% NASAL SPRAY 1 SPRAY NASAL (09:00)
[2023-09-17] MEDS: VIBRAMYCIN 100 MG PO (09:00)
[2023-09-17] MEDS: FLOMAX 0.400000000000000022 MG PO (09:00)
[2023-09-17] MEDS: HEPARIN SC (09:00)
[2023-09-17] MEDS: DUONEB 3 ML INH (09:28)
--- NOTE | 2023-09-17 10:13 | W.PN.URO.CBU ---
Today's Communication / Plan
-
Cleared for discharge for a continued trial of stone passage
Will schedule outpatient office visit first week in September 2023
Assessment / Plan
-
Partially obstructing 3 mm right UVJ stone
No discomfort
Urinalysis not c/w UTI
---
Fevers and leukocytosis most likely due to PNA: improved
Diagnosis
-
Date of Service: September 17, 2023
-
Patient Diagnosis:
Partially obstructing 3 mm right UVJ stone: CT scan images personally reviewed
Urinalysis w/o evidence of acute infection
Currently comfortable: has had no recurrent renal colic
---
Past urologic history notable for nephrolithiasis
Patient has never required stone surgery
Has passed stones spontaneously: has had no issues in many years
---
He has right upper lobe PNA: 09/11/23 CXR reviewed
He has had intermittent fever > 100 x 2 weeks
He currently has a non-productive cough
Subjective
-
Remains comfortable urologically
Objective
-
Vital Signs
Temp Pulse Resp BP Pulse Ox
98.4 F 75 16 139/86 98
09/17/23 07:30 09/17/23 09:30 09/17/23 09:30 09/17/23 07:30 09/17/23 09:30
Intake and Output
09/16/23 09/17/23 09/18/23
06:59 06:59 06:59
Intake Total 960 / 960 1320 / 1320
Output Total 1300 / 1300
Balance -340 / -340 1320 / 1320
Intake:
Oral fluids 960 / 960 1320 / 1320
Output:
Urine, Voided 1300 / 1300
Other:
Number of approximated MODERATE 2
amounts of urine
Laboratory Results
09/16/23 10:05
09/16/23 10:05
Review of Systems
-
Constitutional: No Symptoms
Respiratory: Cough
Cardiac: No Symptoms
Abdomen/GI: No Symptoms
: No Symptoms
Neurological: No Symptoms
Physical Exam
-
General - well developed, well nourished, no acute distress
Abdomen - soft, non-tender
Genitalia - normal
[2023-09-17] MEDS: ROCEPHIN 1000 MG IV (10:31)
[2023-09-17] MEDS: STERILE WATER FOR INJECTION 10 ML IV (10:31)
--- NOTE | 2023-09-17 10:41 | W.PN.HOSP.TC ---
Today's Communication/Plan
-
d/c home
Assessment / Plan
Assessment / Plan
1. Right distal ureteral stone
-CT abd/pelv showing small 3mm distal urerteal stone
-Passed with conservative mangment/IVF
-Urology cleared for discahrge
2. RUL Pneumonia
- diagnosed last week
- dyspnea is better. wheezing resolved
- non smoker. duoneb prn ordered
- COVID/flu neg. legionella/strep pneumonia neg.
- Sputum cx poor sample, no pathologic organism
- added doxycycline to regimen. already on rocephin
- Repeat Cxr showing more prominent infiltrate - natural progression of pneumonia and not failure of abx therapy
- f/u cxr in 4 weeks
3. Ear congestion
-on abx and will cover for bacterial infection
-use OTC ephedrine nasal spray
DVT Px: SCD
Code: Full
More than 30 minutes spent in discharge including
Final examination of the patient
Summarizing hospital stay
Instructions for continuing care to all relevant caregivers
Preparation of discharge records, prescriptions, and referral forms
Total time spent (in minutes): 36 mins
Anticipated Discharge: Today
Subjective/Interval History
-
Date of Service: September 17, 2023
feeling better
no issues overnight
Objective Data
-
Vital Signs:
Vital Signs
Temp Pulse Resp BP Pulse Ox
98.4 F 75 16 139/86 98
09/17/23 07:30 09/17/23 09:30 09/17/23 09:30 09/17/23 07:30 09/17/23 09:30
I&O
09/16/23 09/17/23 09/18/23
06:59 06:59 06:59
Intake Total 960 / 960 1320 / 1320
Output Total 1300 / 1300
Balance -340 / -340 1320 / 1320
Review of Systems
-
EENT: Reports Other (Ear congestion/headache)
Respiratory: Reports No Symptoms
Cardiac: Reports No Symptoms
Abdomen/GI: Reports No Symptoms
Physical Exam
-
General: Comfortable
HEENT: Negative Oxygen
Respiratory: Clear to Auscultation
Cardiac: Regular Rhythm and S1/S2; Negative Murmur or Rub
GI: Soft, Nontender and Nondistended
Musculoskeletal: No Edema
Neuro: Awake, Alert, Oriented, No Motor Deficits and Nonfocal/Grossly Intact
Psych: Calm
--- NOTE | 2023-09-17 10:53 | CM ---
Patient for d/c home today,
Patient denies home care needs.
Patient has transport.
Plan: home no needs.
[2023-09-17 11:00] VITALS: BP 131/74
--- NOTE | 2023-09-19 07:42 | W.DCSUMMARY ---
Discharge Summary
Discharge Data
Date of Admission: 09/14/23
Date of Discharge: 09/17/23
-
Pending Results: No
Hospital Course
Discharging Physician : Dr Fabio Day
Disposition : To home
Primary care physician : Dr Dedrick Silvestre
Principal Discharge diagnosis :
Right distal ureteral 3 mm stone
Right hydronephrosis
Right upper lobe pneumonia
Chronic Discharge diagnosis :
None
Hospital Course :
Patient is a 57-year-old male with no significant past medical history came to ER for with new onset of right flank pain with radiation to right testicle. Patient also has been noting intermittent fever. Of note patient was diagnosed for right
upper lobe pneumonia 3 days before in ER and was provided oral antibiotic therapy. CT abdomen pelvis in ER showing mild right hydronephrosis with 3 mm kidney stone in distal right ureter and incidental small right pleural effusion. Urology was
involved in care who recommended conservative management with patient started on IV antibiotics and IV fluid. Patient was able to pass the stone within 24 hours and was cleared by urology for to be discharged. Unfortunately patient pulmonary
symptoms persisted and patient antibiotics adjusted to cover preliminary pulmonary organisms. Workup including sputum cultures/COVID/legionella/strep pneumonia urinary antigen was negative. Patient symptoms slowly improved over next 48 hours.
Discharge patient provided a prescription for follow-up chest x-ray in 4 weeks. Patient provided a short course of oral antibiotics. Patient to follow-up with primary care physician in 1 week.
Important imaging findings :
None
Procedure findings :
None
Discharge Plan
-
Patient Disposition: Home (Routine Discharge)
Discharge Diagnosis/Procedures: Community acquired pneumonia, Obstructive stone
Condition: Fair
Diet: Regular
Activity: As tolerated
Driving Restrictions: As prior to admission
Bathing Restrictions: OK to Shower
Others Tests: Chest Xr in 4 week
Referrals:
Dedrick Silvestre MD [Family Provider] - in one week
Prescriptions:
New
cefdinir 300 mg capsule
300 mg PO BID 5 Days Qty: 10 0RF
doxycycline hyclate 100 mg capsule
100 mg PO BID Qty: 10 0RF
Discontinued
cefpodoxime 100 mg tablet
200 mg PO BID 7 Days Qty: 28 0RF
Discharge Orders:
Discharge Patient (As Directed); Ordered 09/17/23
Ordered By: Fabio Day
Discharge Date and Time
Discharge Date/Time: 09/17/23 12:39
== END 2023-09-17 12:39 | disposition home or self-care (01) | DRG 693 ==
LOC: 4 WEST ACU 05:34
PROVIDERS: Emergency Medicine; ADMITTING PHYSICIAN Internal Medicine; ATTENDING PHYSICIAN Hospitalist; CONSULT PHYSICIAN Specialist; EMERGENCY PHYSICIAN Emergency Medicine; FAMILY PHYSICIAN Family Medicine
DX: N13.2 Hydronephrosis with renal and ureteral calculous obstruction (principal); J18.9 Pneumonia, unspecified organism
CPT/HCPCS: 71046; 74176; 80048; 80053; 81003; 81015; 83735; 85025; 85027; 87086; 87205; 87449; 87899; 94640; 96361; 96365; 96366; 96375; 99284